=== PATIENT | female | born 1970 | race Caucasian/White ===

== ENCOUNTER 2017-05-08 22:47 | Inpatient (IN) | payer MEDICAID ==
[~2017-05-08] VITALS: Ht 152.4 cm; Wt 65.0 kg
[~2017-05-08 22:47] MED LIST: CARI350 PO; CITA20TA9 PO; NITR25OR3 PO
[2017-05-09 00:33] LABS: BASOPHILS # (AUTO) 0.04 K/uL (0.00-0.20); BASOPHILS % (AUTO) 0.7 % (0.0-2.0); EOSINOPHILS # (AUTO) 0.12 K/uL (0.00-0.70); HEMATOCRIT 37.8 % (36-46); HEMOGLOBIN 12.8 g/dL (12.0-16.0); LYMPHOCYTES % (AUTO) 49.2 % (22.0-44.0); MEAN CORPUSCULAR HGB CONC 33.8 G/dL (31.0-37.0); MEAN CORPUSCULAR VOLUME 89 fL (80-100); MONOCYTES # (AUTO) 0.6 K/uL (0.1-1.0); MONOCYTES % (AUTO) 9.5 % (2.0-9.0); NEUTROPHILS # (AUTO) 2.3 K/uL (1.8-7.7); NEUTROPHILS % (AUTO) 38.7 % (40.0-70.0); PLATELET COUNT (AUTO) 290 K/uL (150-450); RED BLOOD CELL COUNT(AUTO) 4.25 MIL/uL (4.00-5.20); RED CELL DISTRIBUTION WIDTH 12.2 % (11.5-14.5)
[2017-05-09 00:46] LABS: CALCIUM, TOTAL 9.1 mg/dL (8.8-10.5); CREATININE 1.1 mg/dL (0.60-1.30)
[2017-05-09 00:52] LABS: ALBUMIN 4.2 g/dL (3.4-5.0); BILIRUBIN,TOTAL 0.5 mg/dL (0.1-1.0); TOTAL PROTEIN, SERUM 7.4 g/dL (6.4-8.2)
[2017-05-09] MEDS ORDERED: ZOLPIDEM TARTRATE 10 MG TABLET PO ONE (01:00)
[2017-05-09] MEDS ORDERED: ZOLPIDEM TARTRATE 10 MG TABLET PO PRN (01:45)
[2017-05-09] MEDS: LORazepam 2 MG TABLET PO PRN ×4 (02:34→21:18)
[2017-05-09] MEDS: HALOPERIDOL 5 MG TABLET PO PRN (02:34)
[2017-05-09 03:35] LABS: APPEARANCE,URINE CLEAR (CLEAR); GLUCOSE, URINE (UA) NEGATIVE (NEGATIVE); KETONES,URINE NEGATIVE (NEGATIVE); LEUKOCYTE ESTERASE ,URINE NEGATIVE (NEGATIVE); OCCULT BLOOD,URINE TRACE (NEGATIVE); PH,URINE 5.5 (5.0-8.0); PROTEIN,URINE NEGATIVE (NEGATIVE)
[2017-05-09 03:41] LABS: ADD UA MICROSCOPIC YES
[2017-05-09 04:15] LABS: WBC,URINE 0-2 /HPF (0-5)
[2017-05-09] MEDS ORDERED: PNEUMOCOCCAL VACCINE POLYVALENT 0.5 ML VIAL [PPSV23] IM ONE (05:15)
[2017-05-09 05:16] VITALS: BP 104/64
[2017-05-09 06:37] LABS: CHOL/HDL RATIO 4.7 (3.9-5.7)
[2017-05-09 08:00] VITALS: BP 98/64
[2017-05-09] MEDS ORDERED: IBUPROFEN 600 MG TABLET PO PRN (08:15)
[2017-05-09] MEDS ORDERED: PETROLATUM,WHITE 71 GM JELLY TP PRN (08:15)
[2017-05-09] MEDS ORDERED: LOPERAMIDE HCL 2 MG CAPSULE PO PRN (08:15)
[2017-05-09] MEDS ORDERED: TraMADol HCL 50 MG TABLET PO PRN (08:15)
[2017-05-09] MEDS ORDERED: ACETAMINOPHEN 325 MG TABLET PO PRN (08:15)
[2017-05-09] MEDS ORDERED: MAG HYDROX/AL HYDROX/SIMETH ES 30 ML SUSPENSION UDCUP PO PRN (08:15)
[2017-05-09] MEDS ORDERED: ALBUTEROL SULFATE HFA 90 MCG/PUFF 8 GM INHALER IH PRN (08:15)
[2017-05-09] MEDS ORDERED: CloNIDine HCL 0.1 MG TABLET PO PRN (08:15)
[2017-05-09] MEDS ORDERED: ONDANSETRON HCL 4 MG TABLET PO PRN (08:15)
[2017-05-09] MEDS ORDERED: MAGNESIUM HYDROXIDE SUSPENSION 30 ML UDCUP PO PRN (08:15)
[2017-05-09] MEDS ORDERED: BACITRACIN 28.4 GM OINTMENT TP PRN (08:15)
[2017-05-09] MEDS ORDERED: BENZOCAINE/MENTHOL LOZENGE [8 LOZENGES/PACKET] MM PRN (08:30)
[2017-05-09] MEDS: OMEPRAZOLE 20 MG CAPSULE PO SCH (10:03)
[2017-05-09] MEDS ORDERED: NITR100C PO (17:16)
[2017-05-09] MEDS: LamoTRIgine 100 MG TABLET PO SCH (18:30)
[2017-05-09 18:37] VITALS: BP 109/73
[2017-05-09] MEDS ORDERED: SIMVASTATIN 10 MG TABLET PO SCH (21:00)
[2017-05-10 01:30] VITALS: BP 104/62
[2017-05-10 06:55] LABS: HEMOGLOBIN A1C 5.9 % (4.5-6.2)
[2017-05-10 07:11] LABS: ANION GAP 6 mmol/L (8-16); CALCIUM, TOTAL 8.6 mg/dL (8.8-10.5); CARBON DIOXIDE 31 mmol/L (22-29); CHLORIDE 103 mmol/L (98-107); CREATININE 0.77 mg/dL (0.60-1.30); GLOMERULAR FILTR. RATE CALC > 60 mL/min (>60); POTASSIUM 4.3 mmol/L (3.5-5.1); SODIUM SERUM 140 mmol/L (136-145); THYROID STIMULATING HORMONE 0.31 uIU/mL (0.36-3.74); UREA NITROGEN, BLOOD 15 mg/dL (7-18)
[2017-05-10] MEDS: OMEPRAZOLE 20 MG CAPSULE PO SCH (07:33)
[2017-05-10] MEDS: LamoTRIgine 100 MG TABLET PO SCH (07:34)
[2017-05-10] MEDS: LORazepam 2 MG TABLET PO PRN ×2 (07:38→11:44)
[2017-05-10] MEDS: HALOPERIDOL 5 MG TABLET PO PRN ×2 (07:38→11:44)
[2017-05-10 08:00] VITALS: BP 101/75
[2017-05-10] MEDS ORDERED: LAMO100 PO (08:30)
[2017-05-10] MEDS ORDERED: SIMV-259 PO (08:31)
[2017-05-10] MEDS ORDERED: OMEP20 PO (08:31)
== END 2017-05-10 13:00 | disposition home or self-care (01) | DRG 754 ==
LOC: EMS 22:48 → 3EI 05-09 03:14
PROVIDERS: ADMIT Psychiatry & Neurology Psychiatry; ATTEND Psychiatry & Neurology Psychiatry
DX: F32.9 Major depressive disorder, single episode, unspecified (principal); F10.231 Alcohol dependence with withdrawal delirium; E87.1 Hypo-osmolality and hyponatremia; N39.0 Urinary tract infection, site not specified; E11.9 Type 2 diabetes mellitus without complications; E78.5 Hyperlipidemia, unspecified; K21.9 Gastro-esophageal reflux disease without esophagitis; G47.00 Insomnia, unspecified; M25.551 Pain in right hip; F22 Delusional disorders; F41.0 Panic disorder [episodic paroxysmal anxiety]; Z96.641 Presence of right artificial hip joint; Z98.84 Bariatric surgery status; Z87.440 Personal history of urinary (tract) infections; Z28.21 Immunization not carried out because of patient refusal
CPT/HCPCS: 82306; 83036; 84443; 99285

== ENCOUNTER 2020-06-13 17:06 | Emergency (ER) | payer MEDICAID ==
[~2020-06-13] VITALS: Ht 160 cm; Wt 68.2 kg
[~2020-06-13 17:06] MED LIST changes: -CARI350 PO; -CITA20TA9 PO; +LAMO100 PO; -NITR25OR3 PO; +OMEP20 PO; +SIMV-259 PO
[2020-06-13] MEDS ORDERED: ZOLP-280 PO (17:20)
[2020-06-13] MEDS ORDERED: LORA-999 PO (17:20)
[2020-06-13] MEDS ORDERED: LORazepam 1 MG TABLET PO ONE (18:00)
[2020-06-13 18:07] LABS: GLUCOSE,POINT OF CARE 86 MG/DL (70-110)
[2020-06-13] MEDS ORDERED: IBUPROFEN 600 MG TABLET PO ONE (19:00)
[2020-06-13 20:15] VITALS: BP 100/69
== END 2020-06-13 21:26 | disposition home or self-care (01) ==
LOC: EMS 17:06
DX: R25.2 Cramp and spasm (principal); F41.9 Anxiety disorder, unspecified; F32.9 Major depressive disorder, single episode, unspecified; Z90.89 Acquired absence of other organs
CPT/HCPCS: 82948

== ENCOUNTER 2023-06-17 14:49 | Emergency (ER) | payer MEDICAID, SELFPAY ==
[~2023-06-17] VITALS: Ht 157.5 cm; Wt 75.0 kg
[~2023-06-17 14:49] MED LIST changes: +LAMO-24 PO; -LAMO100 PO; +LORA-999 PO; +ZOLP-280 PO
[2023-06-17 14:54] VITALS: TEMP 98.5
[2023-06-17] MEDS ORDERED: METF-1211 PO (14:58)
[2023-06-17] MEDS ORDERED: VORT20TA PO (14:58)
[2023-06-17] MEDS ORDERED: SIMV-261 PO (14:58)
[2023-06-17] MEDS ORDERED: BREX4TAB PO (14:58)
[2023-06-17] MEDS ORDERED: LISI-892 PO (14:58)
[2023-06-17] MEDS ORDERED: EZET10TA57 PO (15:01)
[2023-06-17 15:46] VITALS: BP 138/78; PULSE 93; RESP 18
== END 2023-06-17 15:54 | disposition home or self-care (01) ==
LOC: EMS 14:49
DX: F32.A Depression, unspecified (principal); F41.9 Anxiety disorder, unspecified; Z76.0 Encounter for issue of repeat prescription; Z90.49 Acquired absence of other specified parts of digestive tract; Z96.649 Presence of unspecified artificial hip joint; Z88.5 Allergy status to narcotic agent; Z88.6 Allergy status to analgesic agent
CPT/HCPCS: 82962; 99282